=== PATIENT | female | born 1975 | race Caucasian/White ===

== ENCOUNTER 2020-02-20 17:48 | Emergency (ER) | payer OTHER, SELFPAY ==
[2020-02-20 17:58] VITALS: BP 144/84; PULSE 87; RESP 20; TEMP 37; O2SAT 100
--- NOTE | 2020-02-20 18:10 | ED.LOWEXIN ---
HPI - Extremity Injury (Lower) General Chief Complaint: Extremity Injury, Lower Stated Complaint: left leg injury/top of leg Time Seen by Provider: 02/20/20 18:10 Source: patient and RN notes reviewed History of Present Illness HPI Narrative: Patient is a 44-year-old female who presents the urgent care with complaints of pain to the left upper leg. Patient states that she noticed the pain on Thursday and continued to do her normal exercising, 30 minutes on the elliptical, and a lot of yard work and housework. Patient states it has not improved and she has been taking ibuprofen [id number]. Patient denies any history of DVT. Denies of any shortness of breath or chest pain. Denies of any redness or swelling to the area. States that the leg hurts worse when lifting or abducting. Denies of any known fall or injury. No other acute complaints. No acute distress noted. Patient read the plan of care. Related Data Home Medications Medication Instructions Recorded Confirmed amlodipine 10 mg PO DAILY 02/20/20 02/20/20 hydrochlorothiazide 25 mg PO DAILY 02/20/20 02/20/20 Allergies Allergy/AdvReac Type Severity Reaction Status Date / Time Sulfa (Sulfonamide Allergy Rash Verified 02/20/20 18:18 Antibiotics) Review of Systems Review of Systems: Narrative: CONSTITUTIONAL: Denies fever, chills, or sweats. EYES: Denies visual changes, redness, or discharge. ENT: Denies rhinorrhea, congestion, sore throat, or otalgia. CARDIOVASCULAR: Denies chest pain, palpitations, or edema. RESPIRATORY: Denies cough or dyspnea. GASTROINTESTINAL: Denies abdominal pain, nausea, vomiting, or diarrhea. GENITOURINARY: Denies dysuria or hematuria. SKIN: Denies rash or itching. MUSCULOSKELETAL: Reports of left upper leg/groin pain NEUROLOGIC: Denies headache, numbness, or weakness. All other systems reviewed are negative, except as documented in HPI. PMFSH Comments At the time of my signature, I reviewed and agree with the nursing past medical, surgical, social, and family history. There is no relevant family history pertinent to the patient complaint. Exam Narrative: Exam Narrative: GENERAL: This is a well-nourished, well-developed patient, in no apparent distress. HEAD: normocephalic, atraumatic. EYES: PERRL. Sclera clear/white. Vision is grossly intact. EARS: External ears normal NOSE: External nose normal with no obvious nasal discharge, nares without redness, no rhinorrhea. THROAT: Mucous membranes moist NECK: Neck supple SKIN: warm, intact with no suspicious lesions or rash, good texture and turgor. NEURO: awake, alert, and oriented to person, place and time. There were no obvious focal neurologic abnormalities. EXTREMITIES: No clubbing, cyanosis, or edema. Positive strong left pedal pulse. Moderate tenderness with palpation to the left upper thigh/groin. Femoral pulse positive and strong. Increased pain with abducting the left leg and lifting the leg Course Vital Signs Vital signs: Vital Signs Temperature 98.6 F 02/20/20 17:58 Pulse Rate 87 02/20/20 17:58 Respiratory Rate 02/20/20 17:58 Blood Pressure 144/84 H 02/20/20 17:58 Pulse Oximetry 100 02/20/20 17:58 Temperature 98.6 F 02/20/20 17:58 Pulse Rate 87 02/20/20 17:58 Respiratory Rate 02/20/20 17:58 Blood Pressure 144/84 H 02/20/20 17:58 Pulse Oximetry 100 02/20/20 17:58 Reviewed?patient is informed that they may have pre-hypertension or hypertension based on a blood pressure reading in the department. I recommend the patient call the primary care provider listed on their discharge instructions or a physician of their choice this week to arrange follow-up for further evaluation of possible pre-hypertension or hypertension. MDM - Extremity Injury (Lower) MDM Narrative Medical decision making narrative: Advised the patient to stop doing her normal exercises, especially the elliptical, or any other exercise that would entail repetitive motion.
== END 2020-02-20 18:30 | disposition home or self-care (01) ==
PROVIDERS: Emergency Provider Nurse Practitioner Family
DX: S76.212A Strain of adductor muscle, fascia and tendon of left thigh, initial encounter (principal); X58.XXXA Exposure to other specified factors, initial encounter; S86.912A Strain of unspecified muscle(s) and tendon(s) at lower leg level, left leg, initial encounter; I10 Essential (primary) hypertension
CPT/HCPCS: 99213; G0463